=== PATIENT | male | born 1985 | race Caucasian/White ===

== ENCOUNTER 2024-06-30 15:02 | Outpatient (REF) | payer OTHER, SELFPAY ==
--- NOTE | ~2024-06-30 | US_ITS ---
EXAMINATION: US SCROTUM US SCROTUM DOPPLER CLINICAL INFORMATION: Left testicular swelling. Evaluate for torsion. COMPARISON: None available. TECHNIQUE: A sonogram of the scrotum was performed assessing fragoso-scale appearance and color Doppler flow. Spectral Doppler analysis of the arterial and venous flow were performed in the testes bilaterally. FINDINGS: RIGHT: Right testicle measures 4.3 x 2.1 x 2.8 cm, volume 13.6 mL. Punctate calcification within the medial aspect of the right testicle. No additional testicular parenchymal lesions are visualized. Spectral Doppler analysis of the arterial and venous flow is normal in the right testis. Right epididymal head is slightly heterogeneous. Exophytic simple cyst measuring 0.2 cm. No right hydrocele or varicocele is seen. Right epididymal Doppler flow is normal. LEFT: Left testicle measures 4.1 x 2.3 x 3.2 cm, volume 15.5 mL. No focal testicular parenchymal lesions are visualized. Spectral Doppler analysis of the arterial and venous flow is normal in the left testis. Left epididymis is heterogeneous with increased Doppler detectable vascular flow. No left hydrocele or varicocele is seen. US/US scrotum IMPRESSION: 1. Heterogeneous left epididymis with increased Doppler detectable vascular flow, which can be seen in the setting of epididymitis. 2. Punctate calcification within the medial aspect of the right testicle. No additional right-sided testicular parenchymal lesion. No evidence of testicular torsion. 3. Simple right epididymal cyst measuring 0.2 cm. Electronically signed by: Rudolph Carlson MD 06/30/2024 04:35 PM [facility]
--- NOTE | ~2024-06-30 | US_ITS ---
EXAMINATION: US SCROTUM US SCROTUM DOPPLER CLINICAL INFORMATION: Left testicular swelling. Evaluate for torsion. COMPARISON: None available. TECHNIQUE: A sonogram of the scrotum was performed assessing fragoso-scale appearance and color Doppler flow. Spectral Doppler analysis of the arterial and venous flow were performed in the testes bilaterally. FINDINGS: RIGHT: Right testicle measures 4.3 x 2.1 x 2.8 cm, volume 13.6 mL. Punctate calcification within the medial aspect of the right testicle. No additional testicular parenchymal lesions are visualized. Spectral Doppler analysis of the arterial and venous flow is normal in the right testis. Right epididymal head is slightly heterogeneous. Exophytic simple cyst measuring 0.2 cm. No right hydrocele or varicocele is seen. Right epididymal Doppler flow is normal. LEFT: Left testicle measures 4.1 x 2.3 x 3.2 cm, volume 15.5 mL. No focal testicular parenchymal lesions are visualized. Spectral Doppler analysis of the arterial and venous flow is normal in the left testis. Left epididymis is heterogeneous with increased Doppler detectable vascular flow. No left hydrocele or varicocele is seen. US/US scrotum doppler IMPRESSION: 1. Heterogeneous left epididymis with increased Doppler detectable vascular flow, which can be seen in the setting of epididymitis. 2. Punctate calcification within the medial aspect of the right testicle. No additional right-sided testicular parenchymal lesion. No evidence of testicular torsion. 3. Simple right epididymal cyst measuring 0.2 cm. Electronically signed by: Rudolph Carlson MD 06/30/2024 04:35 PM [facility]
== END 2024-06-30 15:03 | disposition home or self-care (01) ==
LOC: HO.US 15:02
PROVIDERS: PCP Internal Medicine; Visit Provider Internal Medicine
DX: N50.89 Other specified disorders of the male genital organs (principal)
CPT/HCPCS: 76870; 93975

== ENCOUNTER 2024-07-18 16:10 | Outpatient (REF) | payer OTHER, SELFPAY ==
[2024-07-18 17:47] LABS: Appearance Urine Turbid; Color Urine Yellow; Glucose Urine UA Negative (Negative); Leukocyte Esterase Urine Negative (Negative); Nitrite Urine Negative (Negative); PH 5.5 (5.0-9.0); Specific Gravity - Urine 1.025 (1.005-1.025); Urine Blood Negative (Negative); Urine Ketones Negative (Negative); Urine Protein Negative (Neg-Trace)
[2024-07-18 17:56] LABS: Bacteria Urine None Seen (None Seen); Hyaline Casts Urine 0-2 /LPF (0-2); RBC Urine 0-2 /HPF (0-2); Squamous Epithelial Cell Urine 0-2 /HPF (0-2); WBC Urine 0-5 /HPF (0-5)
--- OUTSIDE RECORDS SUMMARY | 2024-07-25 15:22 | XMS_ITS ---
Author Name [facility] Organization Unknown History of Medication Use Medication Directions Dispensed Refills Start Date End Date Stat levoFLOXacin (LEVAQUIN) 500 MG tablet Take 1 tablet (500 mg total) by mouth daily. 06/30/2024 08/15/9999 active Problems Problem Status Onset Date Problem Type Date of Resoluti on Source Testicular pain, left active [facility] Epididymitis active EncounterDiagnosisAct [facility]
== END 2024-07-18 16:11 | disposition home or self-care (01) ==
LOC: HO.CHCLNP 16:10
PROVIDERS: Visit Provider Internal Medicine
DX: R19.00 Intra-abdominal and pelvic swelling, mass and lump, unspecified site (principal)
CPT/HCPCS: 81001

== ENCOUNTER 2024-10-23 14:26 | Outpatient (REF) | payer OTHER, SELFPAY ==
--- NOTE | ~2024-10-23 | CT_ITS ---
CLINICAL HISTORY: Pelvic and lower abdominal pain x [address] pelvis with contrast Comparison: None Findings: There is mild thickening of the distal descending colon with mild surrounding fat stranding. Normal appendix. No acute fracture. IMPRESSION: Mild colonic thickening, consistent with ischemia, infection, or inflammation. Follow-up colonoscopy is recommended to exclude underlying neoplasm. This document has been electronically signed by: Roderick Mendez MD on 10/24/2024 15:22:26
[2024-10-23] MEDS: iohexoL 350 MG/ML 100 ML INFUS..BTL IV (16:01)
--- OUTSIDE RECORDS SUMMARY | 2024-10-23 16:29 | XMS_ITS | Clinical Summary ---
Author Organization [facility] Address [address] [place] [id number] Care Team Providers Care Core Winding Operator Name Role Phone Pcp, No Primary Care Provider Unavailabl e Allergies No known active allergies Medications No known medications Active Problems No known active problems Social History Tobacco Use Types Packs/Day Years Used Date Smoking Tobacco: Never Smokeless Tobacco: Never Tobacco Cessation:Counseling Given: Not Answered Sex and Gender Information Value Date Recorded Sex Assigned at Male 06/28/2024 6:45 PM EST Gender Identity Male 06/28/2024 6:45 PM EST Sexual Orientation Heterosexual (straight) 06/28 6:45 PM EST Last Filed Vital Signs Vital Sign Reading Time Taken Comments Blood Pressure 135/90 06/28/2024 6:34 PM EST Pulse 58 06/28/2024 6:34 PM EST Temperature 36.7 ??C (98 ??F) 06/28/2024 6:34 PM EST Respiratory Rate 16 06/28/2024 6:34 PM EST Oxygen Saturation 97% 06/28/2024 6:34 PM EST Inhaled Oxygen Concentration - - Weight 80.7 kg (178 lb) 06/28/2024 6:34 PM EST Height 167.6 cm (5' 6 ) 06/28/2024 6:34 PM EST Body Mass Index 28.73 06/28/2024 6:34 PM EST Plan of Treatment Health Maintenance Due Date Last Done Comments Hepatitis C Virus Screening 1983 HIV Screening 01/16/1996 DTaP/Tdap/Td Vaccines (1 - Tdap) 2002 Hepatitis B Vaccines (1 of 3 - 19+ 3-dose series) 2002 COVID-19 Vaccine (2023-2 5 season) 2024 Influenza Vaccine Completed 05/05/2024 HPV Vaccines Aged Out No longer eligi ble based on patient's age to complete this topic Pneumococcal Vaccine: Pediat radha (0-5 Years) and At-Risk Patients (6 to 49 Years) Aged Out No longer eligible b ased on patient's age to complete this topic Care Teams Core Winding Operator Relationship Specialty Start Date End Date Pcp, No PCP - General General Medicine 06/28/24
--- OUTSIDE RECORDS SUMMARY | 2024-10-23 16:29 | XMS_ITS | Encounter Summary ---
Author Organization [employer] Address [address] [place] [address] [place] [address] Care Team Providers Care Zipper Setter Chainstitch Name Role Phone Parvin Pardo MD Primary Care Provider [phone] Reason for Visit * Reason Onset Date Comments Referral 10/12/2024 TC to [facility]-CT sca n pelvis Encounter Details Date Type Department Care Team ([facility] st Contact Info) Description 10/12/2024 Telephone [facility] CHC MED & PEDS [address] [place], [place] [phone] Parvin Pardo MD [address] [place], [place] [phone] Referral (TC to [facility]-CT scan pelvis) Social History Tobacco Use Types Packs/Day Years Used Date Smoking Tobacco: Never Smokeless Tobacco: Never Alcohol Use Standard Drinks/Week Comments Never 0 (1 standard drink = 0.6 oz pur e alcohol) Housing Stability Answer Date Recorded What is your housing situation today? I have dejuan clementina 09/05/[address] you li ve. Do you have problems with any of the following? None of the above 09/05/2024 Food Insecurity Answer Date Recorded Within the past 12 months, y ou worried that your food would run out before you got money to buy more: Never True 09/05/2024 Within the past 12 months,th e food you bought just didn't last and you didn't have enough money to get more: Never True Transportation Answer Date Recorded In the past 12 months, has l ack of transportation kept you from medical appts, meetings, work or from getting things needed for daily living? No 09/05/2024 Utilities Answer Date Recorded In the past 12 months, has t he electric, gas, oil or water company threatened to shut off services in your home? No 09/05/2024 Internet Access Answer Date Recorded Internet Access Q1 Yes 09/05/2024 Internet Access Q2 Not on file 09/05/2024 Sex and Gender Information Value Date Recorded Sex Assigned at Male 05/05/2024 1:32 PM EDT Legal Sex Male 1:29 PM EDT Gender Identity Male 05/05/2024 1:32 PM EDT Sexual Orientation Straight 05/05/2024 1: 32 PM EDT documented as of this encounter Miscellaneous Notes * Telephone Encounter - Patricia Will [place] - 10/12/2024 1:29 PM EST Spoke with Push[facility] at [facility] who stated will speaks with customer facilities supervisor to see if the could schedule patient sooner. They would call patient if sooner appt is available. documented in this encounter Plan of Treatment Not on file documented as of this encounter Visit Diagnoses Not on filedocumented in this encounter Care Teams Zipper Setter Chainstitch Relationship Specialty Start Date End Date Parvin Pardo MD [address] [place] [address] [place] [address] PCP - General Internal Medicine 06/30/24 documented as of this encounter
--- OUTSIDE RECORDS SUMMARY | 2024-10-23 16:29 | XMS_ITS | Encounter Summary ---
Author Organization [employer] Address [address] [place] [address] [address] [place] [address] Care Team Providers Care Agent Based Modeler Name Role Phone Parvin Pardo MD Primary Care Provider [phone] Encounter Details Date Type Department Care Team ([facility] st Contact Info) Description 07/17/2024 Orders Only [facility] CHC MED & PEDS [address] [place], [place] [phone] Parvin Pardo MD [address] [place] [address] Orchitis and epididymitis (Primary Dx); Pelvic fullness Social History Tobacco Use Types Packs/Day Years Used Date Smoking Tobacco: Never Smokeless Tobacco: Never Alcohol Use Standard Drinks/Week Comments Never 0 (1 standard drink = 0.6 oz pur e alcohol) Sex and Gender Information Value Date Recorded Sex Assigned at Male 05/05/2024 1:32 PM EDT Legal Sex Male 1:29 PM EDT Gender Identity Male 05/05/2024 1:32 PM EDT Sexual Orientation Straight 05/05/2024 1: 32 PM EDT documented as of this encounter Plan of Treatment Not on file documented as of this encounter Procedures Procedure Name Priority Date/Time Associated Diagnosis Comments URINALYSIS, COMPLETE Routine 07/18/2024 12:00 AM EST Pelvic fullness documented in this encounter Results * Urinalysis Complete (07/18/2024 12:00 AM EST) Color Urine Yellow [facility] Appearance Urine Turbid [facility] PH 5.5 5.0 - 9.0 [facility] Glucose Urine UA Negative Negative mg/dL [facility] Urine Blood Negative Negative [facility] Specific [place] - Urine 1.025 1.005 - 1.025 [facility] Urine Protein Negative Neg-Trace mg/dL [facility] Urine Ketones Negative Negative mg/dL [facility] Nitrite Urine Negative Negative [facility] Leukocyte Esterase Urine Negative Negative [facility] RBC Urine 0-2 0 - 2 /HPF [facility] Urine WBC 0-5 0 - 5 /HPF [facility] Urine Squamous Epithelial Cell 0-2 0 - 2 /HPF [facility] Urine Bacteria None Seen None Seen [facility] Hyaline Casts, Urine 0-2 0 - 2 /LPF [facility] Urine (Urine, Random) 07/18/2024 07/18/2024 Parvin Pardo MD LAB URINE ORDERABLES Final Result [facility] [address] [place] [phone] [phone] documented in this encounter Visit Diagnoses Diagnosis Orchitis and epididymitis- Primary Unspecified orchitis and epididymitis Pelvic fullness documented in this encounter Care Teams Agent Based Modeler Relationship Specialty Start Date End Date Parvin Pardo MD [address] [place] [id number] PCP - General Internal Medicine 06/30/24 documented as of this encounter
--- OUTSIDE RECORDS SUMMARY | 2024-10-23 16:29 | XMS_ITS | Encounter Summary ---
Author Organization [employer] Address [address] [place] [address] [address] [address] Care Team Providers Care Garbage Collector Supervisor Name Role Phone Parvin Pardo MD Primary Care Provider [phone] Reason for Referral * Imaging (Routine) - Authorized Specialty Diagnoses / Procedures Referred By Tino houston Referred To Contact Radiology Diagnoses Pelvic pain Procedures CT Pelvis w/ Contrast Parvin Pardo MD [address] [place] [address] Phone: tel: fax: [address] Phone: tel: fax: Referral ID Status Reason Start Date Expiration Date V isits Requested Visits Authorized [id number] Authorized 09/07/2024 09/07/2025 1 1 * Imaging (Routine) - Canceled Specialty Diagnoses / Procedures Referred By Tino t Referred To Contact Radiology Diagnoses Pelvic pain Procedures CT Abdomen Pelvis w/ Contrast Parvin Pardo MD [address] [place] [address] Phone: tel: fax: [address] Phone: tel: fax: Referral ID Status Reason Start Date Expiration Date V isits Requested Visits Authorized [id number] Canceled 08/24/2024 08/24/2025 1 1 Encounter Details Date Type Department Care Team (Late st Contact Info) Description 08/24/2024 Orders Only [facility] CHC MED & PEDS [address] [place] [address] Parvin Pardo MD [address] [place] [address] Pelvic pain (Primary Dx) Social History Tobacco Use Types Packs/Day Years [...] as of this encounter Plan of Treatment Scheduled Orders Name Type Priority Associated Diagnoses Orde r Schedule CT Abdomen Pelvis w/ Contrast Imaging Routine Pelvic pain Expected: 08/24/2024, Expires: 08/24/2025 CT Pelvis w/ Contrast Imaging Routine Pelvic pain Expected: 09/07/2024, Expires: 09/07/2025 documented as of this encounter Visit Diagnoses Diagnosis Pelvic pain- Primary documented in this encounter Care Teams Garbage Collector Supervisor Relationship Specialty Start Date End Date Parvin Pardo MD [address] [place] [address] PCP - General Internal Medicine 06/30/24 documented as of this encounter
--- OUTSIDE RECORDS SUMMARY | 2024-10-23 16:29 | XMS_ITS | Clinical Summary ---
Author Organization [employer] Address [address] [place] [address] [address], [place] [address] Care Team Providers Care Bonded Strand Operator Name Role Phone Parvin Pardo MD Primary Care Provider [phone] Allergies No known active allergies Medications No known medications Active Problems Problem Noted Date Diagnosed Date testicle pain 06/30/2024 Encounters Date Type Department Care Team Description 10/12/2024 Telephone [facility] [address] [place] [address] Parvin Pardo MD Referral ([facility] [place]) 09/12/2024 4:00 PM EST Office Visit [facility] [address] [place] [address] Parvin Pardo MD Pelvic pain (Primary Dx); testicle pain 09/12/2024 Travel 09/07/[address] [facility] [address] [place] [address] [address] [address] ORDER 09/05/2024 Patient Outreach [facility] [address] [place] [address] Parvin Pardo MD Pre-visit Planning (SDOH negative, Tobacco screening negative. ) 08/24/2024 Orders Only [facility] [address] [place] [address] Parvin Pardo MD Pelvic pain (Primary Dx) 08/24/2024 [facility] [address] [place] [address] ORDER 08/21/2024 Travel 08/17/2024 10:20 AM EST Office Visit [facility] [address] [place] [address] Parvin Pardo MD Pelvic pain (Primary Dx); testicle pain; Low back pain at multiple sites 08/17/2024 Travel 08/15/2024 Telephone [facility] [address] [place] [address] Parvin Pardo MD from Last 3 Months Immunizations Name Administration Dates Next Due Influenza, seasonal, injectable, preservative fr ee 05/05/2024 Family History Medical History Relation Name Comments Diabetes type II Father Dementia Mother Relation Name Status Comments Father Mother Social History Tobacco Use Types Packs/Day Years Used Date Smoking Tobacco: Never Smokeless Tobacco: Never Tobacco Cessation:Counseling Given: No Alcohol Use Standard Drinks/Week Comments Never 0 (1 standard drink = 0.6 oz pur e alcohol) Housing Stability Answer Date Recorded What is your housing situation today? I have dejuan mcrae 09/05/[address] you li [...] Orientation Straight 05/05/2024 1: 32 PM EDT Last Filed Vital Signs Vital Sign Reading Time Taken Comments Blood Pressure 119/79 09/12/2024 4:05 PM EST Pulse 74 09/12/2024 4:05 PM EST Temperature 36.7 ??C (98.1 ??F) 09/12/2024 4:05 PM ES T Respiratory Rate 20 09/12/2024 4:05 PM EST Oxygen Saturation 98% 09/12/2024 4:05 PM EST Inhaled Oxygen Concentration - - Weight 82.1 kg (181 lb) 09/12/2024 4:05 PM EST Height 167.6 cm (5' 6 ) 09/12/2024 4:05 PM EST Body Mass Index 29.21 09/12/2024 4:05 PM EST Plan of Treatment Health Maintenance Due Date Last Done Comments Depression Screening 1983 HIV Screening 1983 Lipid Panel 1983 Hepatitis B Vaccines (3 of 3 - 3-dose series) 06/08/1997 04/13/1997, 10/19/1996 Family Planning (PISQ) 1998 Hepatitis C Screening 2001 COVID-19 Vaccine ( season) 2024 04/14/2021, 03/11/2021 Alcohol/Substance Use Screening 09/12/2025 09/12/2024 SDOH Screening 09/12/2025 09/12/2024 Tobacco Screening 09/12/2025 09/12/2024 Zoster Vaccines (1 of 2) 2033 DTaP/Tdap/Td Vaccines (6 - Td or Tdap) 12/29/2033 12/30/2023, 02/08/2013, 12/14/1995, Additional history exists RSV Patients and Patients Aged 60 years or older (1 - 1-dose 75+ series) 2058 IPV Vaccines Completed 12/14/1995, 09/1994, 10/02/1994 Influenza Vaccine Completed 05/05/2024 HIB Vaccines Aged Out No longer eligi ble based on patient's age to complete this topic HPV Vaccines Aged Out No longer eligi ble based on patient's age to complete this topic Hepatitis A Vaccines Aged Out No long er eligible based on patient's age to complete this topic Meningococcal Vaccine Aged Out No mir rigo eligible based on patient's age to complete this topic Pneumococcal Vaccine: Pediatrics (0 to 5 Years) and At-Risk Patients (6 to 49) Years) Aged Out No longer eligible based on patient's age to complete this topic RSV under 20 months Aged Out No longe r eligible based on patient's age to complete this topic Rotavirus Vaccines Aged Out No longer eligible based on patient's age to complete this topic Insurance [facility] DUAL COMPLETE HMO Care Teams Bonded Strand Operator Relationship Specialty Start Date End Date Parvin Pardo MD [address] [place] [id number] PCP - General Internal Medicine 06/30/24
== END 2024-10-23 14:27 | disposition home or self-care (01) ==
LOC: HO.CT 14:26
PROVIDERS: PCP Internal Medicine; Visit Provider Internal Medicine
DX: R10.2 Pelvic and perineal pain (principal)
CPT/HCPCS: 72193; Q9967

== ENCOUNTER → 2024-10-23 14:31 | Outpatient (BNV) | payer OTHER, SELFPAY | PROVIDERS: PCP Internal Medicine; Visit Provider Radiology Diagnostic Radiology | DX: R10.2 Pelvic and perineal pain (principal); R10.30 Lower abdominal pain, unspecified | CPT/HCPCS: 72193 ==